=== PATIENT | female | born 1985 | race Caucasian/White ===

== ENCOUNTER 2021-01-13 16:22 | Emergency (ER) | payer OTHER ==
[~2021-01-13 16:22] MED LIST: IBUPROFEN600 MG PO; ZOFRAN ODT 4 MG4 MG PO
[2021-01-13 17:30] LABS: RED BLOOD COUNT 4.66 M/UL (4.00-5.10); WHITE BLOOD COUNT 11.6 K/UL (4.5-11.0)
[2021-01-13 17:51] LABS: BUN/CREATININE RATIO 17 (0-10)
[2021-01-13] MEDS ORDERED: MEDROL DOSEPAK 24 MG PO (18:29)
== END 2021-01-13 19:10 | disposition home or self-care (01) ==
LOC: ER1 16:22
PROVIDERS: Physician Assistant Medical
DX: R20.0 Anesthesia of skin (principal); Z88.0 Allergy status to penicillin
CPT/HCPCS: 70450; 80053; 85025; 85652; 86140; 96372; 99284; J2930

== ENCOUNTER → 2021-05-09 | Outpatient (CLI) | payer OTHER ==
[~2021-05-09] MED LIST changes: +MEDROL DOSEPAK 24 MG PO
== END ==
LOC: KOH-I 15:03
DX: Z98.1 Arthrodesis status (principal); M48.02 Spinal stenosis, cervical region; M50.123 Cervical disc disorder at C6-C7 level with radiculopathy; M47.22 Other spondylosis with radiculopathy, cervical region
CPT/HCPCS: 72040

== ENCOUNTER 2021-10-12 13:47 | Emergency (ER) | payer OTHER ==
[~2021-10-12 13:47] MED LIST changes: +ONDANSETRON ODT4 MG PO
[2021-10-12 15:17] LABS: HEMOGLOBIN 13.2 gm/dl (12.3-15.3); RED BLOOD COUNT 4.86 M/UL (4.00-5.10); WHITE BLOOD COUNT 4.7 K/UL (4.5-11.0)
[2021-10-12 15:49] LABS: BUN/CREATININE RATIO 13 (0-10)
== END 2021-10-12 20:24 | disposition home or self-care (01) ==
LOC: ER1 13:47
PROVIDERS: Physician Assistant Medical
DX: O09.521 Supervision of elderly multigravida, first trimester (principal); O98.511 Other viral diseases complicating pregnancy, first trimester; U07.1 COVID-19; Z88.0 Allergy status to penicillin; Z3A.12 12 weeks gestation of pregnancy
CPT/HCPCS: 80053; 81001; 85025; 99284